=== PATIENT | male | born 1965 | race Two or more races ===

== ENCOUNTER 2022-04-28 05:15 | Day surgery (SDC) | payer OTHER ==
[2022-04-28] MEDS ORDERED: NEURONTIN300 MG PO (09:22)
[2022-04-28] MEDS ORDERED: ULTRAM50 MG PO (09:22)
[2022-04-28] MEDS ORDERED: TYLENOL ARTHRI650 MG PO (09:22)
[2022-04-28] MEDS ORDERED: KETO10TA2 PO (09:22)
[2022-04-28] MEDS ORDERED: MIRALAX17 GM PO (09:22)
== END 2022-04-28 12:15 | disposition home or self-care (01) ==
LOC: CIR.AMB 05:15
PROVIDERS: ATTEND Surgery
DX: K42.0 Umbilical hernia with obstruction, without gangrene (principal); Z20.822 Contact with and (suspected) exposure to COVID-19
CPT/HCPCS: 49653; C1781